=== PATIENT | female | born 1960 | race Two or more races ===

== ENCOUNTER → 2025-02-11 | Day surgery (SDC) | payer MEDICAID ==
[2025-02-09 12:24] LABS: Alanine Aminotransferase 19 U/L (7-40); Anion Gap 9 (5-15); BUN/Creatinine Ratio 15.9 (10.0-20.0); Blood Urea Nitrogen 11 mg/dL (9-23); Calcium 9.1 mg/dL (8.7-10.4); Carbon Dioxide 24 mmol/L (20-31); Chloride 106 mmol/L (98-107); Potassium 4.0 mmol/L (3.5-5.1); Sodium 139 mmol/L (136-145); Total Protein 8.0 g/dL (5.7-8.2)
[2025-02-09 12:25] LABS: Bilirubin, Total 0.6 mg/dL (0.2-1.0)
[2025-02-09 12:27] LABS: Albumin 4.8 g/dL (3.2-4.8); Alkaline Phosphatase 123 U/L (46-116); Glucose 121 mg/dL (74-106)
[2025-02-09 12:36] LABS: Urine Protein, UAD Negative (Negative)
[2025-02-09 12:41] LABS: Hematocrit 44.8 % (36.0-46.0); Hemoglobin 15.2 g/dL (12.2-16.2); Mean Corpuscular Hemoglobin 30.3 pg (28.0-32.0); Mean Corpuscular Volume 89.2 fL (80.0-100.0); Nucleated Red Blood Cells % 0.0 %
[2025-02-09 13:04] LABS: INR 0.97 (0.9-1.15); Partial Thromboplastin Time 30.5 SEC (24.5-34.5); Prothrombin Time 10.3 sec (9.3-11.8)
[~2025-02-11] VITALS: Ht 160 cm; Wt 106.6 kg
[~2025-02-11] MED LIST: ATOR40TA52 PO; BUPR150T8 PO; CHOL62.52 PO; CITA-73 PO; GLYCOPYRROLATE 0.2 MG/ML 1ML VIAL ONE; LEVO-848 PO; LISI2.5T47 PO; METO25TA93 PO; MIDAZOLAM HCL 2MG/2ML 2ml VIAL (1mg/ml) ONE; OLAN1TAB19 PO; ONDANSETRON HCL 4 MG/2 ML VIAL IV PRN; ONDANSETRON HCL 4 MG/2 ML VIAL ONE; PROPOFOL 10 MG/ML 20 ML IV ONE; TIRZ5INJ SC
[2025-02-11 08:37] VITALS: PULSE 99; RESP 20; TEMP 98.7; O2SAT 96
--- NOTE | 2025-02-11 08:39 | DVHHP2 ---
GI H&P Pre-Op Assessment Date: 02/11/25 Chief complaint: colon cancer screening, blood in stool HPI: per clinic note Past medical history: per clinic note Past surgical history: per clinic note Family history: per clinic note Physical exam: General: NAD, AAOX3 HEENT: PERRL, no scleral icterus, normal hearing, gums without lesions or bleeding, oropharynx clear without erythema or exudate. Neck: Supple without enlargement of the thyroid, or lymphadenopathy. Chest: Normal size and shape, no tenderness, lung reyes clear to auscultation and percussion, nonlabored breathing. Heart: RRR, no murmur Abdomen: non-distended, no tenderness to palpation, +BS, no hepatosplenomegaly Extremities: no edema Neurological: CN II-XII intact, sensation intact in all extremities, 5+ strength in all extremities Skin: No rashes, No jaundice Assessment: - colon cancer screening - blood in stool Plan: - Colonoscopy - Risks (bleeding, infection, perforation, reaction to sedation medications and cardiopulmonary arrest) and benefit of the procedure were explained to patient. Patient agrees to undergo the procedure. STEPHANIE PARKER MD Feb 11, 2025 08:39
--- NOTE | 2025-02-11 08:41 | DVHOP2 ---
Operative Report DATE OF OPERATION: 02/11/25 PROCEDURE: Colonoscopy. PREOPERATIVE INDICATION: The patient is a 64 -year-old female undergoing colonoscopy for colon cancer screening and blood in the stool POSTOPERATIVE DIAGNOSES: 1. 2 mm transverse colon polyp was removed with cold biopsy forceps. 2. 3 mm rectal polyp was removed with cold biopsy forceps. 3. Diverticulosis in left colon. 4. Internal hemorrhoids PROCEDURE PERFORMED BY: Gabriel Tomlin M.D. SCOPE: Olympus videocolonoscope. ASA CLASS: 3 PREOPERATIVE MEDICATIONS: MAC with Dr Li PROCEDURE IN DETAIL: After obtaining an informed consent, the patient was placed on left lateral decubitus position. She was then sedated with the above medications. A rectal examination was performed that was normal. The colonoscope was then passed through the anus into the rectosigmoid and through the descending, transverse, and ascending colon up to the cecum with visualization of the appendiceal orifice, base of the cecum and the ileocecal valve. A 2 mm transverse colon polyp was removed with cold biopsy forceps. A 3 mm rectal polyp was removed with cold biopsy forceps. There was diverticulosis in left colon. There were internal hemorrhoids. The colonoscope was then withdrawn. The patient tolerated the procedure well without difficulty. WITHDRAWAL TIME: 8 minutes QUALITY OF THE PREP: [place] Bowel Prep score: 7 COMPLICATIONS : None SPECIMENS: Colon polyps DISPOSITION: D/C to home PLAN: 1. Repeat colonoscopy base on biopsy result GABRIEL TOMLIN MD Feb 11, 2025 08:41
--- NOTE | 2025-02-11 08:41 | DVHDS2 ---
Physician Discharge Progress N Final Diagnosis: Colon polyps, diverticulosis, internal hemorrhoids Operations or Procedures: Operations or Procedures Colonoscopy with biopsy polypectomy Condition on Discharge: Good Disposition: Home Discharge Instructions: Diet: Regular Activity: No Restrictions, As Tolerated Medications: Resume with previous home medications Follow Up Care: Discharge Statement: "Patient was advised to return to the ER or call 911 if any headaches, dizziness, shortness of breath, chest pain, abdominal pain, bleeding, fevers, or worsening of medical condition. Patient was counseled about treatment plan, medications, possible side effects, patientverbalized understanding. All questions were answered to the best of my ability. This discharge took greater then 30 minutes in planning, reviewing documentation, counseling the patient, and discussing with other team members." STEPHANIE PARKER MD Feb 11, 2025 08:41
[2025-02-11 09:27] VITALS: BP 138/79; PULSE 96; RESP 17; O2SAT 95
== END | disposition home or self-care (01) ==
LOC: GI 06:27
PROVIDERS: ATTEND Internal Medicine Gastroenterology
DX: K92.1 Melena (principal); D12.3 Benign neoplasm of transverse colon; K63.5 Polyp of colon; K62.1 Rectal polyp; K57.30 Diverticulosis of large intestine without perforation or abscess without bleeding; K64.8 Other hemorrhoids; I10 Essential (primary) hypertension; E11.9 Type 2 diabetes mellitus without complications; E03.9 Hypothyroidism, unspecified; E78.5 Hyperlipidemia, unspecified; J44.9 Chronic obstructive pulmonary disease, unspecified; F31.89 Other bipolar disorder; E66.01 Morbid (severe) obesity due to excess calories; Z68.41 Body mass index [BMI] 40.0-44.9, adult
CPT/HCPCS: 36415; 45380; 80053; 81001; 82962; 85025; 85610; 85730; 88305; J2250; J2405; J2704; J7030